=== PATIENT | male | born 1965 | race American Indian/Alaskan Native ===

== ENCOUNTER 2018-08-29 13:25 | Emergency (ER) | payer MEDICARE ==
[2018-08-29 13:34] VITALS: BP 132/73
[2018-08-29] MEDS ORDERED: IBUPROFEN PO ONE ×2 (13:34→13:37)
[2018-08-29] MEDS ORDERED: ATROVENT IH ONE ×3 (13:35→14:25)
[2018-08-29] MEDS ORDERED: DECADRON IV ONE (13:35)
[2018-08-29] MEDS ORDERED: PROVENTIL IH ONE ×3 (13:35→14:25)
--- NOTE | 2018-08-29 13:37 | Emergency Department Report ---
Blank Doc - Documentation Documentation: This is a 53-year-old male that presents with URI with wheezing and SOB. Exam: diffuse wheezing noted This initial assessment/diagnostic orders/clinical plan/treatment(s) is/are subject to change based on patient's health status, clinical progression and re- assessment by fellow clinical providers in the ED. Further treatment and workup at subsequent clinical providers discretion. Patient/guardians urged not to elope from the ED as their condition may be serious if not clinically assessed and managed. Initial orders include: 1- Patient sent to [facility] for further evaluation and treatment 2- CXR 3- motrin for fever 4- breathing treatment/steroids
--- NOTE | 2018-08-29 14:06 | XRay Report ---
ROUTINE CHEST, TWO VIEWS: HISTORY: Cough, wheezing. The trachea, heart, mediastinal contour, lung mars and bony thorax are unremarkable. IMPRESSION: Unremarkable chest x-ray.
--- NOTE | 2018-08-29 14:24 | Emergency Department Report ---
Minor Respiratory - HPI Chief Complaint: Dyspnea/Respdistress Stated Complaint: CHEST PAIN,CHILLS,SOB Time Seen by Provider: 08/29/18 13:33 Duration: 3 Days Pain Location: Throat, Nose, Chest Severity: moderate Minor Respiratory: Yes Rhinorrhea, Yes Sore Throat, Yes Able to Tolerate Fluids, Yes Cough, Yes Sick Contacts, Yes Chest Pain, Yes Shortness of Breath, Yes Feve r, No Ear Pain, No Hemoptysis Other History: Mr. Rausch is a 53-year-old male history of diabetes hypertension who presents with fever chills call generalized malaise. His PCP prescribed amoxicillin which did not provide any relief. His fiance at home has similar symptoms. He did not receive a flu vaccine this season. ED Review of Systems ROS: Stated complaint: CHEST PAIN,CHILLS,SOB Other details as noted in HPI Constitutional: chills, fever, malaise ENT: throat pain Respiratory: cough, shortness of breath, wheezing Cardiovascular: chest pain Gastrointestinal: nausea ED Past Medical Hx - Past Medical History Previous Medical History?: Yes Hx Hypertension: Yes Hx Diabetes: Yes - Surgical History Past Surgical History?: Yes Additional Surgical History: brain - Social History Smoking Status: Never Smoker Substance Use Type: None - Medications Home Medications: Home Medications Medication Instructions Recorded Confirmed Last Taken Type Oseltamivir [Tamiflu] 75 mg PO BID 5 Days #10 cap 08/29/18 Unknown Rx Minor Respiratory Exam - Exam General: Vital signs noted. No distress. Alert and acting appropriately. HEENT: Yes Moist Mucous Membranes, No Pharyngeal Erythema, No Pharyngeal Exudates, No Rhinorrhea, No Conjuctival Injection, No Frontal Tenderness, No Maxillary Tenderness Ear: Neither TM Bulge, Neither TM Erythema Neck: Yes Supple, No Adenopathy Lungs: Yes Good Air Exchange, No Wheezes, No Ronchi, No Stridor, No Cough, No Labored Respirations, No Retractions, No Use of Accessory Muscles, No Other Abnormal Lung Sounds Heart: Yes Regular, No Murmur Abdomen: Yes Normal Bowel Sounds, No Tenderness, No Peritoneal Signs Skin: No Rash, No Edema Neurologic: Alert and oriented, no deficits. Musculoskeletal: Unremarkable. ED Course Vital Signs 08/29/18 13:29 Temperature 99.9 F H Pulse Rate 56 L Respiratory 20 Rate Blood Pressure 132/73 O2 Sat by Pulse 92 Oximetry ED Medical Decision Making - Radiology Data Radiology results: report reviewed Chest x-ray PA lateral according to radiology report no acute process - Medical Decision Making Clinical impression: Influenza prescription Tamiflu Critical care attestation.: If time is entered above; I have spent that time in minutes in the direct care of this critically ill patient, excluding procedure time. ED Disposition Clinical Impression: Influenza Disposition: DC-01 TO HOME OR SELFCARE Is pt being admited?: No Does the pt Need Aspirin: No Condition: Stable Instructions: Influenza (ED) Prescriptions: Oseltamivir [Tamiflu] 75 mg PO BID 5 Days #10 cap Referrals: FAITH SHULTZ JR, MD [Staff Physician] - 3-5 Days
== END 2018-08-29 15:15 | disposition home or self-care (01) ==
LOC: ED 13:25
DX: J11.1 Influenza due to unidentified influenza virus with other respiratory manifestations (principal)
CPT/HCPCS: 71046; 94640